=== PATIENT | male | born 1965 | race Caucasian/White ===

== ENCOUNTER → 2016-07-06 | Outpatient (CLI) | payer OTHER, MEDICAID ==
[~2016-07-06] MED LIST: ASPI-496; ATOR40TA; CLON0.5T20; ENAL2.5T PO; METO100T5; METO50TA82 PO; NITR1PAT; PHEN100C PO; REGADENOSON 0.4 MG/5 ML SYRINGE ONE; TOPI50TA35
== END | disposition home or self-care (01) ==
LOC: CFH 08:01
PROVIDERS: ATTEND Physician Assistant Medical
DX: I10 Essential (primary) hypertension (principal)
CPT/HCPCS: 78452; 93017; A9502; J2785